=== PATIENT | male | born 1960 | race Caucasian/White ===

== ENCOUNTER → 2018-09-09 | Outpatient (CLI) | payer OTHER ==
--- NOTE | 2018-09-09 12:46 | CONS ---
CONSULTATION DATE OF SERVICE: 09/09/2018 A 57-year-old gentleman who has been evaluated [facility] the [facility] for possible obstructive sleep apnea-hypopnea syndrome. 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 He works from Friday to Friday from 4 pm until 2-3 a.m. and on weekends from noon until 6:00. Subsequently his usual sleep schedule from 3:30 am until 10 - 11 am Friday through Friday and from 3:30 am until 8 am on Friday. Sometimes he has problem with falling asleep, although no TV in bedroom. He sleeps on the side position and he snores. He usually sleeps through the night without awakenings. No history of hypnagogic hallucinations, sleep paralysis or cataplexy. Patient denied any significant daytime sleepiness. [place] Sleepiness Scale is 0. During the day, he takes 2-3 cups of coffee in the morning and 2 pots of coffee a day. PAST MEDICAL HISTORY: Positive for hypertension. PAST SURGICAL HISTORY: Bilateral arm surgery. Status post bilateral arm surgery after falling. SOCIAL HISTORY: Positive for smoking around 2 packs a day for about 45 years. Alcohol consumption 2 beers every night. REVIEW OF SYSTEMS: Sometimes increasing blood pressure, otherwise negative. No cough in the morning. FAMILY HISTORY: Hypertension, arthritis, sinus headaches, snoring, bronchitis, acid reflux, diabetes, mental illness, restless legs. PHYSICAL EXAM: A gentleman without distress, BP 153/72, HR 59, RR around 20, height 5 foot, 9 inches, weight 225.8 pounds, body mass index 32.3, temperature 97.6, oxygen saturation at room air 97.6. OROPHARYNX: Extremely low position of soft palate. Mallampati 4. Restriction of nasal breathing more on the left side. Wide neck 19 inches in circumference. ABDOMEN: Slightly obese. EXTREMITIES: Tendency for swelling of the ankles. Neck Supple, no JVD. Thyroid is not palpable. LUNGS Clear to percussion and to auscultation. Good air exchange. No wheezing or rhonchi. HEART S1, S2 regular. No murmurs, gallops, or rubs. [employer] Awake, alert, and oriented X3. Cranial nerves 2 to 7 intact. There is no fasciculation or atrophy. noted. No focal deficits observed. IMPRESSION: 1. Snoring, extremely low position of soft palate, wide neck, restriction of nasal breathing, mostly on the left side, obstructive sleep apnea-hypopnea syndrome. 2. Obesity, body mass index 32.3. 3. Hypertension, presently on treatment with 3 medications, not on the best control with medications. 4. History of smoking for about 90 pack years. 5. Status post bilateral arm surgery, after fall and subsequent trauma. 6. History of fracture of the nose as a high school student. Possible nasal septum deviation. PLAN: 1. Polysomnography for evaluation of patient's breathing during sleep. 2. CPAP/BiPAP titration if sleep study confirms obstructive sleep apnea-hypopnea syndrome. 3. Preferable position during sleep on the side. 4. No driving if patient feels any sleepiness. 5. I will see patient for follow up visit to explain results of testing and following plan. Thank you very much for referring this patient for consultation. Sincerely, Alex Youngblood MD, PhD, FAASM Diplomat of [employer] [place] [employer] [facility] [place] MMODL / IJN: [id number] /
== END | disposition home or self-care (01) ==
LOC: SLEEP 10:38
PROVIDERS: ATTEND Internal Medicine
DX: G47.33 Obstructive sleep apnea (adult) (pediatric) (principal); E66.9 Obesity, unspecified; I10 Essential (primary) hypertension; Z68.32 Body mass index [BMI] 32.0-32.9, adult; Z87.891 Personal history of nicotine dependence; Z87.828 Personal history of other (healed) physical injury and trauma; Z87.81 Personal history of (healed) traumatic fracture; Z98.890 Other specified postprocedural states
CPT/HCPCS: 99211

== ENCOUNTER → 2018-10-29 | Outpatient (CLI) | payer OTHER ==
--- NOTE | 2018-10-29 14:56 | XR ---
EXAMINATION TYPE: XR Hip Complete RT DATE OF EXAM: 10/29/2018 CLINICAL HISTORY: Chronic right hip pain TECHNIQUE: AP and frogleg views of the right hip are obtained. COMPARISON: None. FINDINGS: There is no acute fracture/dislocation evident in the right hip. The joint space in the r ight hip appears aligned although there is slight cephalad joint space narrowing and acetabular roof sclerosis. Small cam deformity of the lateral femoral head neck junction is seen on the frog leg view . The overlying soft tissue appears unremarkable. IMPRESSION: 1. No acute fracture or dislocation in the right hip. 2. Mild right femoral acetabular arthropathy. 3. Small cam deformity of the lateral femoral head neck junction of the right femur that predisposes this patient to femoral acetabular impingement syndrome.
--- NOTE | 2018-10-29 15:10 | XR ---
EXAMINATION TYPE: XR cervical spine comp DATE OF EXAM: 10/29/2018 TECHNIQUE: Frontal, lateral, oblique, swimmers, and open mouth view of the cervical spine are obtaine d. HISTORY: [id number] RT HIP PAIN, CERVICALGIA COMPARISON: None FINDINGS: The cervical spine is visualized in its entirety from C1 thru the top of T1 level, it is s atisfactory in alignment without evidence of acute fracture or dislocation. The pre-vertebral soft t issue appears within normal limits. The C1-C2 articulation is within normal limits on the open mouth view. The oblique images are within normal limits. Intervertebral disc space narrowing is seen C5-C 6 and C6-C7 with small anterior osteophytes. There is straightening of usual cervical lordosis. IMPRESSION: 1. No acute fracture or dislocation is seen in the cervical spine. 2. Straightening of usual cervical lordosis may relate to muscular sprain/spasm or patient positionin g. 3. Mild multilevel degenerative disc C5-C7 focally.
== END | disposition home or self-care (01) ==
LOC: RADXRYALE 14:26
PROVIDERS: ATTEND Physician Assistant Medical
DX: M12.88 Other specific arthropathies, not elsewhere classified, other specified site (principal); M50.322 Other cervical disc degeneration at C5-C6 level
CPT/HCPCS: 72050; 73502

== ENCOUNTER → 2024-04-19 | Outpatient (CLI) | payer OTHER ==
--- NOTE | 2024-04-19 13:27 | XR ---
EXAMINATION TYPE: XR ankle complete RT DATE OF EXAM: 04/19/2024 11:25 AM COMPARISON: None. CLINICAL INDICATION: Male, 63 years old with history of [id number] RT ANKLE PAIN, pain TECHNIQUE: 3 view(s) obtained. FINDINGS: Ankle mortise is intact. No acute fracture or dislocation is evident. Tiny plantar calcaneal heel spu r is present. Soft tissues appear normal. Some minimal soft tissue swelling along the lateral malleol us entirely excluded. Follow up exams can be performed 7-10 days from acute trauma for continued pain. IMPRESSION: 1. No acute osseous abnormality radiographically apparent [facility] Carlos Long, , 04/19/2024 1:25 PM
== END | disposition home or self-care (01) ==
LOC: RADXRYALE 11:07
PROVIDERS: ATTEND Physician Assistant Medical
DX: M25.571 Pain in right ankle and joints of right foot (principal)